=== PATIENT | female | born 1955 | race African-American/Black ===

== ENCOUNTER → 2024-02-12 | Emergency (ER) | payer OTHER ==
[~2024-02-12] VITALS: Ht 170.2 cm; Wt 99.8 kg
[~2024-02-12] MED LIST: AZOR 10-20 MG1 EACH PO; BUTALB/ACETAMINOPHEN/CAFFEINE 1 TAB TABLET PO ONE; PEPCID AC20 MG PO; ROSUVASTATIN CA20 MG PO
== END | disposition home or self-care (01) ==
LOC: ER 10:09
DX: S09.8XXA Other specified injuries of head, initial encounter (principal); V94.89XA Other water transport accident, initial encounter; Y93.89 Activity, other specified; Y92.89 Other specified places as the place of occurrence of the external cause; Z88.0 Allergy status to penicillin; E78.00 Pure hypercholesterolemia, unspecified; I10 Essential (primary) hypertension